=== PATIENT | female | born 1960 | race Caucasian/White ===

== ENCOUNTER 2024-04-23 08:00 | Emergency (ER) | payer SELFPAY ==
[2024-04-23 08:02] VITALS: BP 102/67
--- NOTE | 2024-04-23 08:37 | ED.GENMED ---
Addendum entered and electronically signed by Lona Huizar PA-C 04/26/24 07:11:
urine culture staph saprophyticus; should be sensitive to FQ which pt is on; no treatment chnage (there are no sensitivities for this bacteria because they typically respond to these abx)
Original Note:
History of Present Illness
<Yoshi Lu MD, Resident - Last Filed: 04/23/24 12:18>
General
Chief Complaint: Urinary Symptoms
Source: patient and records
Time Seen by Provider: 04/23/24 08:28
Travel History
Have you traveled to any high risk areas for coronavirus over the past 14 days?: No
Have you had any contact with someone who has COVID-19?: No
Do you have any symptoms of coronavirus? Fever > 100 degrees, chills, cough, shortness of breath, sore throat, loss of taste or smell, muscle aches, or headache?: No
History of Present Illness
History of Present Illness:
Lona Cavazos, 63-year-old female with a history of pyelonephritis, has had burning micturition and increased frequency for the past week. Developed left-sided flank pain and hematuria a couple of days ago. Intermittent chills but denies fevers,
fatigue or weakness. Denies any other changes to her health or illnesses. Not on any medications or supplements.
Past History
<Yoshi Lu MD, Resident - Last Filed: 04/23/24 12:18>
Past History
ED Past Medical History: Other (pyelonephritis)
ED Past Surgical History: Other (discectomy; breast augmentation)
Social History
Tobacco: Non-smoker
Alcohol: Occasional
Drug: None
Review of Systems
<Yoshi Lu MD, Resident - Last Filed: 04/23/24 12:18>
Review of Systems
Allergies reviewed?: Yes
All Other Systems: ROS reviewed and negative except as documented in HPI and ROS
Phy Exam
<Yoshi Lu MD, Resident - Last Filed: 04/23/24 12:18>
General Physical Exam
General Presentation: well appearing and no apparent distress
General Skin: warm and dry
General Habitus: normal
General Mental: alert
General Hydration: appears well hydrated
ENT Exam
ENT Exam: EOMI, pharynx normal, neck supple and normocephalic
Eye Exam
Eye Exam: PERRL, cornea clear and conjunctiva normal
Cardiovascular Exam
Cardiovascular Exam: regular rate/rhythm, no edema, no murmur and normal peripheral pulses
Pulmonary Exam
Pulmonary Exam: lungs clear, no respiratory distress, no rales, no crackles, no rhonchi, no stridor, no wheezing and no cough
Gastrointestinal Exam
Gastrointestinal Exam: normal bowel sounds, soft, no pulsatile mass, non distended, cva tenderness (left) and tender (lower abdomen/pelvic)
Neurological Exam
Neurological Exam: alert, oriented x3, no motor deficits and speech normal
Musculoskeletal Exam
Musculoskeletal Exam: full ROM and no edema
Skin Exam
Skin Exam: normal color, warm/dry, no rash and no petechia
Psychiatric Exam
Psychiatric Exam: normal mood/affect
Course
<Yoshi Lu MD, Resident - Last Filed: 04/23/24 12:18>
Orders/Labs/Results
Orders:
Orders
04/23/24 08:50
Acetaminophen [Tylenol] 650 mg PO NOW STA
04/23/24 09:22
Complete Blood Count/With Diff Urgent
Comprehensive Metabolic Panel Urgent
Urinalysis Reflex To Culture Urgent
Date Specimen was Collected: 04/23/24
Time Specimen was Collected: 09:16
Urine Microscopic Reflex Cult Urgent
Urine Culture Urgent
SAULO Source: U
Specimen Description:
Date Specimen was Collected: 04/23/24
Time Specimen was Collected: 09:16
04/23/24 10:35
LevoFLOXacin [Levaquin] 750 mg PO NOW STA
Abnormal Lab Results
04/23/24
09:22
Absolute Lymphs (auto) 0.9 L 10^3/uL
(1.2-3.4)
Lymphocytes % 14.4 L %
(20.5-51.1)
Monocytes % 10.2 H %
(1.7-9.3)
ALT 43 H U/L
(0-35)
Ur Occult Blood Reflex 1+ A
(Negative)
Leukocyte Esterase Rfl 2+ A
(Negative)
Urine RBC 7-10 A /HPF
(0-2)
Urine WBC (Reflex) 90-100 A /HPF
(0-5)
Urine Bacteria (Reflex) Few A
(Negative)
Urine Albumin (Reflex) 1+ A
(Neg - Trace)
04/23/24 09:22
04/23/24 09:22
Vital Signs
Initial and Last Documented VS:
Initial Vital Signs
Temp Pulse Resp BP Pulse Ox
98.5 F 71 18 102/67 98
04/23/24 08:02 04/23/24 08:02 04/23/24 08:02 04/23/24 08:02 04/23/24 08:02
Last Documented Vital Signs
Temp Pulse Resp BP Pulse Ox
98.5 F 58 15 96/57 96
04/23/24 08:02 04/23/24 10:45 04/23/24 10:45 04/23/24 10:23 04/23/24 10:30
<Abner Cobb DO - Last Filed: 04/23/24 09:07>
Orders/Labs/Results
Orders:
Orders
04/23/24 08:50
Acetaminophen [Tylenol] 650 mg PO NOW STA
04/23/24 09:22
Complete Blood Count/With Diff Urgent
Comprehensive Metabolic Panel Urgent
Urinalysis Reflex To Culture Urgent
Date Specimen was Collected: 04/23/24
Time Specimen was Collected: 09:16
Urine Microscopic Reflex Cult Urgent
Urine Culture Urgent
SAULO Source: U
Specimen Description:
Date Specimen was Collected: 04/23/24
Time Specimen was Collected: 09:16
04/23/24 10:35
LevoFLOXacin [Levaquin] 750 mg PO NOW STA
Abnormal Lab Results
04/23/24
09:22
Absolute Lymphs (auto) 0.9 L 10^3/uL
(1.2-3.4)
Lymphocytes % 14.4 L %
(20.5-51.1)
Monocytes % 10.2 H %
(1.7-9.3)
ALT 43 H U/L
(0-35)
Ur Occult Blood Reflex 1+ A
(Negative)
Leukocyte Esterase Rfl 2+ A
(Negative)
Urine RBC 7-10 A /HPF
(0-2)
Urine WBC (Reflex) 90-100 A /HPF
(0-5)
Urine Bacteria (Reflex) Few A
(Negative)
Urine Albumin (Reflex) 1+ A
(Neg - Trace)
04/23/24 09:22
04/23/24 09:22
Vital Signs
Initial and Last Documented VS:
Initial Vital Signs
Temp Pulse Resp BP Pulse Ox
98.5 F 71 18 102/67 98
04/23/24 08:02 04/23/24 08:02 04/23/24 08:02 04/23/24 08:02 04/23/24 08:02
Last Documented Vital Signs
Temp Pulse Resp BP Pulse Ox
98.5 F 58 15 96/57 96
04/23/24 08:02 04/23/24 10:45 04/23/24 10:45 04/23/24 10:23 04/23/24 10:30
<Yoshi Lu MD, Resident - Last Filed: 04/23/24 12:18>
MDM/Problems Addressed
Differential Diagnosis Includes:
cUTI; nephrolithiasis; intra abdominal abscess
MDM/Problems Addressed:
Based on the exam and lab work, very likely that this is acute pyelonephritis. Will treat with outpatient antibiotics.
<Yoshi Lu MD, Resident - Last Filed: 04/23/24 12:18>
*Critical Care Note
Total Time (30-74mins, 75-104mins- exclusive of procedures): Not Applicable
ED Attending Note
<Yoshi Lu MD, Resident - Last Filed: 04/23/24 12:18>
-
Portions of this chart may have been created with voice recognition software.� Occasional wrong word or��sound alike� substitutions may have occurred due to the inherent limitations of voice recognition software.
<Abner Cobb, - Last Filed: 04/23/24 09:07>
ED Attending Note
Patient seen and examined by attending physician: Yes
I performed a history and physical exam of patient and discussed management with resident, I reviewed resident's note and agree with documented findings and plan of care.: Yes
ED Attending Note:
Agree with Dr. Lu' note.
Pt with urinary frequency, left back/flank pain. No fever. No nausea or vomiting. Pain is worse with movement.
General: Awake, Alert, Oriented X3. No acute distress.
Vitals: unremarkable
Head: Atraumatic
Eyes: Pupils equal, EOMI
Throat: Airway intact, no exudates
Neck: Trachea midline
Lungs: Clear and equal b/l
Abd: Soft, mild left lower abdominal tenderness
Back: Left CVA tenderness percussion
Skin: Warm, dry, no rash
Extremities: pulses equal b/l, no edema
Discharge Plan
Departure
Patient Disposition: Home (Routine Discharge)
Date of Disposition: 04/23/24
Time of Disposition: 10:37
Patient with high blood pressure during this ER visit?: No
Condition: Good
Discharge Problem:
Acute pyelonephritis
Instructions: Urinary Tract Infection, Adult ED
Prescriptions:
New
levofloxacin 750 mg tablet
750 mg PO DAILY 10 Days Qty: 10 0RF
Referrals:
Dahlia Guzman DO [Family Provider] -
Activity Restrictions/Additional Instructions:
Urine results suggested you have a UTI. Please follow-up with your primary. Return for fatigue, fever, weakness, or worsening pain or blood in urine.
Interventions
Interventions:
*Risk Screen - Suicide Last Done: 04/23/24 08:02
*General Assessment Last Done: 04/23/24 08:02
*Neglect/Abuse Screening Last Done: 04/23/24 08:02
ED- Fall Risk Assessment Last Done: 04/23/24 09:44
*ED COVID-19 Vaccine History Last Done: 04/23/24 08:02
*Nursing Disposition Last Done: 04/23/24 10:55
MY-Yrfpjx-Dvnvyqycyf Assessment Last Done: 04/23/24 09:44
ED-Female Genitourinary Assessment Last Done: 04/23/24 09:44
Discharge Date and Time
Discharge Date/Time: 04/23/24 11:01
Print Language: [id number]
[2024-04-23] MEDS: TYLENOL 650 MG PO (09:15)
[2024-04-23 09:25] VITALS: BP 93/53; BMI 21.5
[2024-04-23 09:33] LABS: Urine Albumin 1+ (Neg - Trace); Urine Bilirubin Negative (Negative); Urine Character Slightly Cloudy (Clear); Urine Color Yellow; Urine Glucose Negative (Negative); Urine Ketone Negative (Negative); Urine Leukocyte 2+ (Negative); Urine Nitrite Negative (Negative); Urine Occult Blood 1+ (Negative); Urine Urobilinogen Negative (Neg - 1+)
[2024-04-23 09:34] LABS: % Basophils 0.3 % (0-2); % Eosinophils 0.8 % (0-6); % Immature Granulocytes 0.3 % (0-0.5); % Lymphocytes 14.4 % (20.5-51.1); % Monocytes 10.2 % (1.7-9.3); Absolute Eosinophils 0.1 10^3/uL (0-0.7); Absolute Lymphocytes 0.9 10^3/uL (1.2-3.4); Absolute Monocytes 0.6 10^3/uL (0.1-0.6); Absolute Neutrophils 4.6 10^3/uL (1.4-6.5); Hematocrit 38.6 % (37.0-47.0); Hemoglobin 12.9 g/dL (12.0-16.0); Mean Corp Hgb Conc. 33.4 g/dL (33.0-37.0); Mean Corpuscular Hgb 30.1 pg (27.0-31.0); Mean Platelet Volume 9.2 fL (7.4-10.4); Nucleated Red Blood Cells % 0 %; Platelet Count 201 10^3/uL (130-400); Red Blood Cell Count 4.29 10^6/uL (4.20-5.40); Red Cell Dist. Width 13.1 % (11.5-14.5); White Blood Cell Count 6.2 10^3/uL (4.8-10.8)
[2024-04-23 09:58] LABS: Urine Mucus Many
[2024-04-23 10:00] LABS: Urine Amorphous Seen
[2024-04-23 10:01] LABS: Urine Bacteria Few (Negative); Urine White Cell 90-100 /HPF (0-5)
[2024-04-23 10:02] LABS: ALT (SGPT) 43 U/L (0-35); AST (SGOT) 32 U/L (14-36); Albumin 4.2 g/dl (3.5-5.0); Alkaline Phosphatase 71 U/L (38-126); Blood Urea Nitrogen 14 mg/dl (7-17); Calcium 9.3 mg/dl (8.4-10.2); Carbon Dioxide 27 mmol/L (22-30); Chloride 105 mmol/L (98-107); Estimated Creatinine Clearance 96 ml/min; Glucose 95 mg/dl (70-99); Potassium 4.4 mmol/L (3.5-5.1); Sodium 143 mmol/L (135-145); Total Bilirubin 0.6 mg/dl (0.2-1.3); Total Protein 6.8 g/dl (6.3-8.2); eGFR > 60.00
[2024-04-23 10:05] VITALS: BP 93/58
[2024-04-23 10:23] VITALS: BP 96/57
[2024-04-23] MEDS: LEVAQUIN 750 MG PO (10:52)
== END 2024-04-23 11:01 | disposition home or self-care (01) ==
LOC: EMR 08:00
PROVIDERS: Student in an Organized Health Care Education/Training Program; EMERGENCY PHYSICIAN Emergency Medicine; FAMILY PHYSICIAN Family Medicine
DX: N10 Acute pyelonephritis (principal)
CPT/HCPCS: 99282; 80053; 81003; 81015; 85025; 87086; 87147